=== PATIENT | female | born 1955 | race Two or more races ===

== ENCOUNTER 2021-09-08 08:57 | Outpatient (CLI) | payer OTHER | END 2021-09-08 08:59 | disposition home or self-care (01) | LOC: LAB 08:57 | PROVIDERS: ATTEND Orthopaedic Surgery | DX: D64.9 Anemia, unspecified (principal); E88.9 Metabolic disorder, unspecified; D68.8 Other specified coagulation defects; N39.0 Urinary tract infection, site not specified; A49.02 Methicillin resistant Staphylococcus aureus infection, unspecified site; E11.9 Type 2 diabetes mellitus without complications; I10 Essential (primary) hypertension; I49.9 Cardiac arrhythmia, unspecified; Z76.89 Persons encountering health services in other specified circumstances ==

== ENCOUNTER 2021-09-08 13:31 | Inpatient (IN) | payer OTHER ==
[~2021-09-08] VITALS: Ht 160 cm; Wt 99.8 kg
[2021-09-17] MEDS ORDERED: LIPITOR20 MG PO (08:17)
[2021-09-17] MEDS ORDERED: JANUMET 50-5001 EACH PO (08:17)
[2021-09-17] MEDS ORDERED: ALTACE10 MG PO (08:18)
[2021-09-17] MEDS ORDERED: TOPROL XL100 M1 PO (08:18)
[2021-09-22] MEDS ORDERED: DICLOFENAC POTA50 MG (08:18)
[2021-09-22] MEDS ORDERED: XARELTO10 M1 (08:18)
[2021-09-22] MEDS ORDERED: LEVOCETIRIZINE D5 MG (08:18)
[2021-09-22] MEDS ORDERED: GABAPENTIN100 M2 (08:18)
[2021-09-22] MEDS ORDERED: GLIMEPIRIDE4 M1 (08:18)
== END 2021-09-24 18:51 | disposition home or self-care (01) | DRG 470 ==
LOC: SURG 09-22 05:48 → O/R 09-22 05:48 → SURG 09-22 12:15
PROVIDERS: ADMIT Orthopaedic Surgery; ATTEND Orthopaedic Surgery
PROC: 0SRD0J9 Replacement of Left Knee Joint with Synthetic Substitute, Cemented, Open Approach (ICD-10-PCS; principal; 2021-09-22 13:45)
DX: M17.12 Unilateral primary osteoarthritis, left knee (principal); Z96.652 Presence of left artificial knee joint; Z20.822 Contact with and (suspected) exposure to COVID-19; I10 Essential (primary) hypertension